=== PATIENT | male | born 1975 | race Caucasian/White ===

== ENCOUNTER 2019-02-11 20:45 | Emergency (ER) | payer SELFPAY ==
[2019-02-11] MEDS ORDERED: Bupivacaine 0.5% 10 ML VIAL ONE (20:58)
[2019-02-11] MEDS ORDERED: Lidocaine 1% (PF) 30 ML VIAL ONE (20:58)
== END 2019-02-11 23:51 | disposition short-term general hospital (02) ==
LOC: ERS 20:45
DX: S62.615B Displaced fracture of proximal phalanx of left ring finger, initial encounter for open fracture (principal); I10 Essential (primary) hypertension; W26.8XXA Contact with other sharp object(s), not elsewhere classified, initial encounter
CPT/HCPCS: 64450; J2001; J3490